=== PATIENT | male | born 1970 | race Native Hawaiian/Other Pacific Islander ===

== ENCOUNTER 2017-10-18 00:31 | Inpatient (IN) | payer OTHER ==
[2017-10-18] MEDS ORDERED: NACL 0.9% 1000 ML 1,000 ML IV ONE (01:13)
[2017-10-18 02:27] LABS: Alanine Aminotransferase 67 units/L (7-56); Albumin 4.7 g/dL (3.9-5); BUN/Creatinine Ratio 13; Blood Urea Nitrogen 8 mg/dL (9-20); Calcium 9.8 mg/dL (8.4-10.2); Hemolysis Index 5
[2017-10-18 02:37] LABS: Basophils % (Auto) 0.3 % (0.0-1.8); Eosinophils % (Auto) 0.4 % (0.0-4.3); Hematocrit 41.9 % (35.5-45.6); Hemoglobin 14.3 gm/dl (11.8-15.2); Lymphocytes # (Auto) 0.6 K/mm3 (1.2-5.4); Lymphocytes % (Auto) 14.9 % (13.4-35.0); Mean Corpuscular HGB Conc 34 % (32-34); Mean Corpuscular Hemoglobin 33 pg (28-32); Mean Corpuscular Volume 97 fl (84-94); Monocytes # (Auto) 0.3 K/mm3 (0.0-0.8); Monocytes % (Auto) 7.7 % (0.0-7.3); Platelet Count 110 K/mm3 (140-440); Red Blood Count 4.34 M/mm3 (3.65-5.03); Red Cell Distribution Width 15.8 % (13.2-15.2)
[2017-10-18 03:03] LABS: Lipase 1639 units/L (13-60)
[2017-10-18 03:25] LABS: Bilirubin,Urine NEG (Negative); Blood,Urine NEG (Negative); Color,Urine Yellow (Yellow); Protein,Urine <15 mg/dL mg/dL (Negative)
--- NOTE | 2017-10-18 11:55 | Emergency Department Report ---
ED Abdominal Pain HPI - General Chief Complaint: Abdominal Pain Stated Complaint: STOMACH AND BACK PAIN Time Seen by Provider: 10/18/17 11:36 Source: patient Mode of arrival: Ambulatory Limitations: No Limitations - History of Present Illness Initial Comments: 47yo male with no significant PMHx came in complaining of abdominal pain for past 2 days. pt states that he started to have abdominal pain last night and then it got wrost and he came in to get it checked out. Pt denies any n/v/cp/ sob. He denies fever, chills. he is under no acute distress. Onset/Timin -: days(s) Location: periumbilical Radiation: none Migration to: no migration Severity: mild Severity scale (0 -10): 3 Quality: aching Consistency: intermittent Improves With: nothing Worsens With: eating Associated Symptoms: denies other symptoms - Related Data Allergies Allergy/AdvReac Type Severity Reaction Status Date / Time pear Allergy Unknown Verified 10/18/17 01:13 avacodo Allergy Unknown Uncoded 10/18/17 01:13 ED Review of Systems ROS: Stated complaint: STOMACH AND BACK PAIN Other details as noted in HPI Constitutional: denies: chills, fever Eyes: denies: eye pain, eye discharge, vision change ENT: denies: ear pain, throat pain Respiratory: denies: cough, shortness of breath, wheezing Cardiovascular: denies: chest pain, palpitations Endocrine: no symptoms reported Gastrointestinal: denies: abdominal pain, nausea, diarrhea Genitourinary: denies: urgency, dysuria Musculoskeletal: denies: back pain, joint swelling, arthralgia Skin: denies: rash, lesions Neurological: denies: headache, weakness, paresthesias Psychiatric: denies: anxiety, depression Hematological/Lymphatic: denies: easy bleeding, easy bruising ED Past Medical Hx - Past Medical History Previous Medical History?: No - Surgical History Past Surgical History?: No - Social History Smoking Status: Never Smoker Substance Use Type: None ED Physical Exam - General Limitations: No Limitations General appearance: alert, in no apparent distress - Head Head exam: Present: atraumatic, normocephalic - Eye Eye exam: Present: normal appearance - ENT ENT exam: Present: mucous membranes moist - Neck Neck exam: Present: normal inspection - Respiratory Respiratory exam: Present: normal lung sounds bilaterally. Absent: respiratory distress - Cardiovascular Cardiovascular Exam: Present: regular rate, normal rhythm. Absent: systolic murmur, diastolic murmur, rubs, gallop - GI/Abdominal GI/Abdominal exam: Present: soft, tenderness (+slightly tender to palpation of mid abdomen, no guarding, no rebound tenderness.), normal bowel sounds - Rectal Rectal exam: Present: deferred - Extremities Exam Extremities exam: Present: normal inspection - Back Exam Back exam: Present: normal inspection - Neurological Exam Neurological exam: Present: alert, oriented X3 - Psychiatric Psychiatric exam: Present: normal affect, normal mood - Skin Skin exam: Present: warm, dry, intact, normal color. Absent: rash ED Course Vital Signs 10/18/17 10/18/17 10/18/17 01:09 09:03 11:44 Temperature 97.6 F 98.4 F 98.1 F Pulse Rate 85 72 58 L Respiratory 18 18 16 Rate Blood Pressure 158/100 177/108 Blood Pressure 173/105 [Left] O2 Sat by Pulse 98 98 100 Oximetry 10/18/17 10/18/17 13:20 13:31 Temperature Pulse Rate Respiratory Rate Blood Pressure 160/103 Blood Pressure [Left] O2 Sat by Pulse 99 97 Oximetry 47yo male with no significant PMHx came here for abdominal pain, pts lipase is elevated and CT scan shows concern for pancreatitis. Pt will be admitted for observation. ED Medical Decision Making - Lab Data Result diagrams: 10/18/17 01:15 10/18/17 01:15 Critical care attestation.: If time is entered above; I have spent that time in minutes in the direct care of this critically ill patient, excluding procedure time. ED Disposition Clinical Impression: Acute pancreatitis Disposition: OP ADMIT IP TO THIS HOSP Is pt being admited?: Yes Condition: Stable Referrals: PRIMARY CARE, [Primary Care Provider] - 3-5 Days
[2017-10-18] MEDS ORDERED: MORPHINE IV ONE (12:52)
--- NOTE | 2017-10-18 13:45 | Cat Scan Report ---
CT ABDOMEN PELVIS WITH CONTRAST: HISTORY: abdominal pain, elevated lipase. COMPARISON: none. TECHNIQUE: Helical CT in 1.25mm intervals following IV contrast. Sagittal and coronal reconstructions. FINDINGS: Lung bases: Normal. Liver: Normal. Biliary system: Normal. Pancreas: The pancreatic duct is markedly dilated and tortuous measuring up to 1.4 cm in diameter. There is no obvious obstructing pancreatic stone or mass. The pancreatic parenchyma is mildly atrophic but otherwise unremarkable. No acute inflammatory changes are appreciated on CT. Spleen: Normal. Kidneys/ureters/bladder: Normal. Adrenal glands: Normal. Aorta: Normal. Intestines: Unremarkable given no oral contrast was administered. Appendix: Not confidently identified, correlate with surgical history. Pelvic viscera: Normal. Ascites: None. Adenopathy: None. Musculoskeletal: Moderate degenerative disc disease is noted at L4-5. No evidence for acute fracture or suspicious bony lesion. IMPRESSION: Abnormal pancreas. The pancreatic duct is markedly dilated. The pancreatic parenchyma is grossly unremarkable. Correlate for acute pancreatitis.
[2017-10-18] MEDS ORDERED: SODIUM CHLORIDE FLUSH SYRINGE 10 ML IV PRN (20:25)
[2017-10-18] MEDS ORDERED: ZOFRAN IV PRN (20:25)
[2017-10-18] MEDS ORDERED: TYLENOL PO PRN (20:25)
--- NOTE | 2017-10-18 20:25 | Event Note ---
Date: 10/18/17 See dictated history and physical in the reports
[2017-10-18] MEDS ORDERED: NACL 0.9% 1000 ML 1,000 ML IV SCH (21:00)
[2017-10-18] MEDS: MORPHINE IV PRN (21:33)
[2017-10-18] MEDS ORDERED: SODIUM CHLORIDE FLUSH SYRINGE 10 ML IV SCH (22:00)
[2017-10-19] MEDS: MORPHINE IV PRN ×2 (02:10→06:59)
--- NOTE | 2017-10-19 06:56 | History and Physical Report ---
CHIEF COMPLAINT: Severe abdominal pain for 2 days. HISTORY OF PRESENT ILLNESS: A 47-year-old with no significant past medical history comes in for severe abdominal pain of 2 days' duration. The patient's pain started around Zackary night and became worse. The pain is about 10 on a scale of 1-10. The patient has nausea, but no vomiting. The patient's pain is sharp. No precipitating or relieving factors. Pain radiating to the back. Pain mostly in periumbilical and epigastric region. Abdominal CAT scan shows abnormal pancreas. The pancreatic duct was markedly dilated. The pancreatic parenchyma is grossly unremarkable. Correlate for acute pancreatitis. PAST MEDICAL HISTORY: Significant for none. PAST SURGICAL HISTORY: None. SOCIAL HISTORY: Does not smoke. No alcohol, no recreational drugs. Alcohol occasionally, once a week, not on a regular basis. FAMILY HISTORY: Hypertension. REVIEW OF SYSTEMS: Significant for severe abdominal pain and nausea. Otherwise, no other symptoms. A 14-point review of systems done. PHYSICAL EXAMINATION: GENERAL: Middle-aged male, cooperative during examination. VITAL SIGNS: Blood pressure is 182/104, temperature is 98.0, pulse is 97, respirations 20. HEENT: Unremarkable. Pupils equal and reactive. NECK: Supple, no lymphadenopathy, no thyromegaly. LUNGS: Clear to auscultation and percussion. Good air entry. CARDIOVASCULAR: S1, S2 heard. No gallop, no murmur, no rub. Apical impulse in left fifth intercostal space and midclavicular line. ABDOMEN: Tender and guarding present especially in the epigastric and periumbilical region. EXTREMITIES: Good pedal pulses. No pedal edema. CENTRAL NERVOUS SYSTEM: Alert and oriented x 4, nonfocal exam. SKIN: Normal. LABORATORY DATA: Significant for white count of 4000, hemoglobin of 14.3, hematocrit of 41.9, platelet count of 110,000. Sodium of 134, potassium of 3.8, chloride of 91.3, BUN and creatinine of 18 and 0.6, glucose is 299. Hemoglobin A1c is 10.5, total bilirubin is 1.4, AST is 220, ALT is 67, alkaline phosphatase is 159, lipase is 1639. Urine is normal. Urine glucose is more than 500. ASSESSMENT AND PLAN: 1. Acute pancreatitis. We will keep the patient n.p.o. IV fluids for the time being and pain management. IV morphine 4 mg q.3 p.r.n. Also, IV Zofran for nausea. 2. Hyponatremia, mild. Should correct with IV fluids. 3. New onset diabetes. Accu-Cheks before meals and at bedtime. Hemoglobin A1c is 10.5. The patient to be initiated on coverage for now and we will defer to the hospitalist about long-acting insulin with basal bolus regimen or oral hypoglycemics. 4. Transaminitis, probably gallstone-induced pancreatitis. We will get a right upper quadrant sonogram. 4. Deep venous thrombosis prophylaxis, Lovenox 40 mg subcutaneous daily. JOB# [id number] RAPHAEL/NTS
[2017-10-19] MEDS ORDERED: HumaLOG SUB-Q SCH (07:00)
--- NOTE | 2017-10-19 09:18 | Ultrasound Report ---
ULTRASOUND ABDOMEN LIMITED: TECHNIQUE: Transabdominal ultrasound with color Doppler interrogation. HISTORY: Cholelithiasis. COMPARISON: CT of abdomen and pelvis with contrast on 10/18/17. FINDINGS: LIVER: Normal. BILIARY SYSTEM: Normal. PANCREAS: Obscured by bowel gas. Please see the previous CT abdomen and pelvis report. RIGHT KIDNEY: Normal. PROXIMAL AORTA: Normal. ASCITES: None. IMPRESSION: Unremarkable exam. No evidence for cholelithiasis. The pancreas is obscured on ultrasound.
--- NOTE | 2017-10-19 10:18 | Gastroenterology Consultation ---
<TOSHIA MEDRANO - Last Filed: 10/19/17 10:28> History of Present Illness - Reason for Consult Consult date: 10/19/17 pancreatitis, CBD stone? Requesting physician: LELO COOPER - History of Present Illness Patient 47 y/o male with no significant PMH who presented to ED with c/o epigastric abd pain x 2 days. Pain radiates to his back and is exacerbated with PO intake. Lipase was found to be elevated on admission with CT showing pancreatic duct dilation and possible acute pancreatitis to which GI has been consulted. This morning patient was walking around in his room w/o acute distress. Reports abd pain improving with pain medications. Denies fever, wt loss, CP, SOB, N/V, signs of bleeding or LGI symptoms such as diarrhea or constipation. Admits to drinking alcohol but would not give information on amount/frequency. Past History Past Medical History: No medical history Past Surgical History: No surgical history Social history: other (alcohol) Family history: no significant family history Medications and Allergies Allergies Allergy/AdvReac Type Severity Reaction Status Date / Time pear Allergy Unknown Verified 10/18/17 01:13 avacodo Allergy Unknown Uncoded 10/18/17 01:13 Home Medications Medication Instructions Recorded Confirmed Last Taken Type No Known Home Medications [No 10/18/17 10/18/17 Unknown History Reported Home Medications] Active Meds: Active Medications Acetaminophen (Tylenol) 650 mg PO Q4H PRN PRN Reason: Pain MILD(1-3)/Fever >100.5/DUBON Sodium Chloride (Nacl 0.9% 1000 Ml) 1,000 mls @ 100 mls/hr IV DIRECT ADOLFO Insulin Human Lispro (Humalog) 0 unit SUB-Q Q6HR ADOLFO; Protocol Last Admin: 10/19/17 09:21 Dose: Not Given Morphine Sulfate (Morphine) 4 mg IV Q4H PRN PRN Reason: Pain, Moderate (4-6) Last Admin: 10/19/17 06:59 Dose: 4 mg Ondansetron HCl (Zofran) 4 mg IV Q8H PRN PRN Reason: Nausea And Vomiting Sodium Chloride (Sodium Chloride Flush Syringe 10 Ml) 10 ml IV BID ADOLFO Last Admin: 10/18/17 21:35 Dose: 10 ml Sodium Chloride (Sodium Chloride Flush Syringe 10 Ml) 10 ml IV PRN PRN PRN Reason: LINE FLUSH Review of Systems - Review of Systems All systems: negative Gastrointestinal: abdominal pain Exam - Constitutional Vital Signs: Temp Pulse Resp BP Pulse Ox 98.2 F 91 H 20 134/90 93 10/19/17 05:32 10/19/17 05:32 10/19/17 06:59 10/19/17 05:32 10/19/17 05:32 General appearance: no acute distress - EENT Eyes: PERRL, EOM intact ENT: hearing intact - Respiratory Respiratory: bilateral: CTA - Cardiovascular Rhythm: regular Heart Sounds: Present: S1 & S2 - Gastrointestinal General gastrointestinal: Present: soft, non-tender, non-distended, normal bowel sounds - Neurologic Neurological: alert and oriented x3 - Labs CBC & Chem 7: 10/18/17 01:15 10/18/17 01:15 Lab Results: Laboratory Results - last 24 hr 10/18/17 10/19/17 20:40 09:02 POC Glucose 117 H Hemoglobin A1c 10.5 H Assessment and Plan 1.acute pancreatitis -afebrile -WBC-4.0 -lipase 1639 -AST 220, ALT 67, alk phos 159, T.abdirashid 1.40 -abd CT showed dilated pancreatic duct and possible acute pancreatitis -abd U/S showed no gallstones or dilation of CBD -etiology unclear- possible obstruction vs alcohol vs other -will order MRI for further evaluation -recommend increasing IVF rate to 150mls/hr -continue to trend labs and supportive care -further recommendations to follow <PAULA VEGA - Last Filed: 10/19/17 16:51> Exam - Constitutional Vital Signs: Temp Pulse Resp BP Pulse Ox 98.6 F 100 H 20 160/130 99 10/19/17 11:55 10/19/17 11:55 10/19/17 11:55 10/19/17 11:55 10/19/17 11:55 - Labs CBC & Chem 7: 10/18/17 01:15 10/18/17 01:15 Lab Results: Laboratory Results - last 24 hr 10/18/17 10/19/17 20:40 09:02 POC Glucose 117 H Hemoglobin A1c 10.5 H Assessment and Plan Pt seen and examined. Agree with note above. Pt presenting with acute pancreatitis. etiology unclear (alcohol vs biliary). Given PD dilatation, will obtain MRI of abdomen to r/o obstructive process or other pancreatic/ biliary pathology. IVF's and supportive care for acute pancreatitis in the mean time.
[2017-10-19 12:47] VITALS: BP 160/130
--- NOTE | 2017-10-19 12:59 | Discharge Summary ---
Providers - Providers Date of Admission: 10/18/17 14:44 Attending physician: HORACIO PAK MD 10/18/17 20:25 Consult to Physician [CONS] Routine Comment: Consulting Provider: FRANTZ MARRERO Physician Instructions: Reason For Exam: acute pancreatitis 10/19/17 06:38 Consult to Physician [CONS] Routine Comment: Consulting Provider: BERNABE MARINELLI Physician Instructions: Reason For Exam: CBD obstruction?? 10/22/17 20:30 Consult to Dietitian/Nutrition [CONS] Routine Physician Instructions: PPN if necessary from Monday Reason For Exam: pancreatitis Reason for Consult: Write/Manage TPN/PPN Primary care physician: BIRD TRAPPER Hospitalization Reason for admission: pancreatitis, dilated pancreatic duct Condition: Stable Pertinent studies: CT abdomen and pelvis; markedly dilated pancreatic duct, acute pancreatitis. Right upper quadrant ultrasound no stone in the bile duct Hospital course: Patient 47 y/o male with no significant PMH who presented to ED with c/o epigastric abd pain x 2 days. Pain radiates to his back and is exacerbated with PO intake. Lipase was found to be elevated on admission with CT showing pancreatic duct dilation and possible acute pancreatitis This morning patient was walking around in his room w/o acute distress. Reports abd pain improving with pain medications. Denies fever, wt loss, CP, SOB, N/V, signs of bleeding or LGI symptoms such as diarrhea or constipation. Admits to drinking alcohol but would not give information on amount/frequency. Patient was admitted to the floor for the management of pancreatitis, and pancreatic diet dilation. Patient is pain-free. GI was consulted for further evaluation and management. Recommended to do MRI. Patient AMA and left home. Risk benefit was explained to him. Disposition: [id number] LEFT AGAINST MED ADVICE Time spent for discharge: 31 minutes - Discharge Diagnoses (1) Dilated pancreatic duct Status: Acute (2) Acute pancreatitis Status: Acute Core Measure Documentation - Palliative Care Palliative Care/ Comfort Measures: Not Applicable - Core Measures Any of the following diagnoses?: none Exam - Physical Exam Narrative exam: Not in cardiopulmonary distress. The patient appeared well nourished and normally developed. Vital signs as documented. Head exam is unremarkable. No scleral icterus . Neck is without jugular venous distension, thyromegaly, or carotid bruits. Lungs are clear to auscultation. Cardiac exam reveals regular rate and Rhythm. First and second heart sounds normal. No murmurs, rubs or gallops. Abdominal exam reveals normal bowel sounds, no masses, no organomegaly and no aortic enlargement. Extremities are nonedematous and both femoral and pedal pulses are normal. SMALL BUSINESS CONSULTANT: Alert and oriented 3. No focal weakness. - Constitutional Vitals: Temp Pulse Resp BP Pulse Ox 98.6 F 100 H 20 160/130 99 10/19/17 11:55 10/19/17 11:55 10/19/17 11:55 10/19/17 11:55 10/19/17 11:55 Plan Activity: no restrictions Weight Bearing Status: Full Weight Bearing Diet: advance as tolerated Additional Instructions: follow at [facility] in 1-2 weeks. Follow up with: PRIMARY CAREMD [Primary Care Provider] - 3-5 Days
--- NOTE | 2017-10-19 13:31 | Event Note ---
Date: 10/19/17 Went to see patient but not in the room. Asked nursing and she states patient left the hospital and took all of his belongings. Did not wait to sign AMA paperwork.
== END 2017-10-19 12:35 | disposition left against medical advice (07) | DRG 439 ==
LOC: ED 00:31 → 3A 14:44
PROVIDERS: ADMIT Internal Medicine; ATTEND Internal Medicine
DX: K85.90 Acute pancreatitis without necrosis or infection, unspecified (principal); E87.1 Hypo-osmolality and hyponatremia; K86.89 Other specified diseases of pancreas; E11.9 Type 2 diabetes mellitus without complications; Z53.21 Procedure and treatment not carried out due to patient leaving prior to being seen by health care provider
CPT/HCPCS: 36415; 74177; 76705; 80053; 81001; 82962; 83036; 83690; 85025; 93005; 93010; J2270; Q9967